=== PATIENT | male | born 1970 | race Caucasian/White ===

== ENCOUNTER 2017-11-30 15:21 | Emergency (ER) | payer MEDICAID ==
[~2017-11-30] VITALS: Ht 172.7 cm; Wt 77.3 kg
[2017-11-30 16:33] VITALS: BP 122/51
== END 2017-11-30 18:10 | disposition home or self-care (01) ==
LOC: ER 15:22
DX: K40.90 Unilateral inguinal hernia, without obstruction or gangrene, not specified as recurrent (principal); G89.29 Other chronic pain; F12.90 Cannabis use, unspecified, uncomplicated; F15.90 Other stimulant use, unspecified, uncomplicated; F10.20 Alcohol dependence, uncomplicated; Z98.890 Other specified postprocedural states; Z59.0 Homelessness; Z56.0 Unemployment, unspecified; Z88.0 Allergy status to penicillin; Y90.9 Presence of alcohol in blood, level not specified
CPT/HCPCS: 99283

== ENCOUNTER 2019-06-02 13:01 | Emergency (ER) | payer SELFPAY ==
[~2019-06-02] VITALS: Ht 167.6 cm; Wt 72.7 kg
[2019-06-02 13:03] VITALS: BP 120/79
[2019-06-02] MEDS ORDERED: CEPH250T PO (13:16)
[2019-06-02] MEDS ORDERED: acetaminophen 325mg tablet PO ONE (13:30)
== END 2019-06-02 13:30 | disposition home or self-care (01) ==
LOC: ER 13:02
DX: L08.89 Other specified local infections of the skin and subcutaneous tissue (principal); G89.29 Other chronic pain; F20.9 Schizophrenia, unspecified; F12.90 Cannabis use, unspecified, uncomplicated; F15.90 Other stimulant use, unspecified, uncomplicated; Z72.89 Other problems related to lifestyle; Z59.0 Homelessness; Z56.0 Unemployment, unspecified; Z88.0 Allergy status to penicillin; Z79.899 Other long term (current) drug therapy
CPT/HCPCS: 99284

== ENCOUNTER 2020-03-14 09:56 | Emergency (ER) | payer MEDICAID ==
[~2020-03-14] VITALS: Ht 180.3 cm; Wt 75.0 kg
[2020-03-14 10:01] VITALS: BP 121/91
[2020-03-14] MEDS: clindamycin 150mg capsule PO ONE (10:47)
[2020-03-14] MEDS ORDERED: CLIN-117 PO (10:56)
== END 2020-03-14 11:39 | disposition home or self-care (01) ==
LOC: ER 09:57
DX: T23.322A Burn of third degree of single left finger (nail) except thumb, initial encounter (principal); L02.512 Cutaneous abscess of left hand; L03.012 Cellulitis of left finger; F15.90 Other stimulant use, unspecified, uncomplicated; G89.29 Other chronic pain; F20.9 Schizophrenia, unspecified; F12.90 Cannabis use, unspecified, uncomplicated; Z72.89 Other problems related to lifestyle; Z59.0 Homelessness; Z56.0 Unemployment, unspecified; Z88.0 Allergy status to penicillin; Z79.899 Other long term (current) drug therapy; X08.8XXA Exposure to other specified smoke, fire and flames, initial encounter; Y93.9 Activity, unspecified; Y92.89 Other specified places as the place of occurrence of the external cause; Y99.8 Other external cause status
CPT/HCPCS: 26010; 99283

== ENCOUNTER 2020-03-21 17:12 | Emergency (ER) | payer MEDICAID ==
[~2020-03-21] VITALS: Ht 172.7 cm; Wt 75.0 kg
[~2020-03-21 17:12] MED LIST: CLIN-117 PO
[2020-03-21 19:01] VITALS: BP 120/81
== END 2020-03-21 19:12 | disposition home or self-care (01) ==
LOC: ER 17:13
DX: I96 Gangrene, not elsewhere classified (principal); G89.29 Other chronic pain; F12.90 Cannabis use, unspecified, uncomplicated; F15.90 Other stimulant use, unspecified, uncomplicated; F17.200 Nicotine dependence, unspecified, uncomplicated; Z72.89 Other problems related to lifestyle; Z79.2 Long term (current) use of antibiotics; Z88.0 Allergy status to penicillin; Z56.0 Unemployment, unspecified; Z59.0 Homelessness; Z98.890 Other specified postprocedural states
CPT/HCPCS: 99281; 99282

== ENCOUNTER 2020-03-28 14:53 | Emergency (ER) | payer MEDICAID ==
[~2020-03-28] VITALS: Ht 170.2 cm; Wt 72.7 kg
[2020-03-28 15:09] VITALS: BP 150/91
[2020-03-28] MEDS ORDERED: ondansetron 4mg rapidly disintigrating tab PO ONE (17:00)
[2020-03-28] MEDS ORDERED: HYDROcodone/acetaminophen 10/325mg tab PO ONE (17:00)
[2020-03-28] MEDS ORDERED: LIDOcaine 1% W/epiNEPHrine 1:200,000 10ml vial IJ ONE (17:20)
[2020-03-28 17:31] LABS: BASOPHILS % (AUTO) 0.6 % (0-1); EOSINOPHILS # (AUTO) 0.1 X10'3 (0-0.9); EOSINOPHILS % (AUTO) 0.9 % (0-6); HEMATOCRIT 41.1 % (42.0-52.0); LYMPHOCYTES # (AUTO) 1.9 X10'3 (1.1-4.8); LYMPHOCYTES % (AUTO) 24.7 % (21-51); MEAN CORPUSCULAR HEMOGLOBIN 31.9 PG (27.0-31.0); MEAN CORPUSCULAR VOLUME 93.7 FL (78-98); MONOCYTES # (AUTO) 0.6 X10'3 (0-0.9); MONOCYTES % (AUTO) 7.5 % (2-12); NEUTROPHILS # (AUTO) 5.1 X10'3 (1.8-7.7); NEUTROPHILS % (AUTO) 66.3 % (42-75); PLATELET COUNT 307 X10'3 (140-440); RED BLOOD COUNT 4.39 X10'6 (4.70-6.10); RED CELL DISTRIBUTION WIDTH 13.7 % (11.5-14.5); WHITE BLOOD COUNT 7.6 X10'3 (4.5-11.0)
[2020-03-28 17:38] LABS: ALANINE AMINOTRANSFERASE 78 U/L (12-78); ALBUMIN 3.5 G/DL (3.4-5.0); ALBUMIN/GLOBULIN RATIO 0.7 (1.1-1.5); ALKALINE PHOSPHATASE 87 IU/L (46-116); ANION GAP 8 (8-16); ASPARTATE AMINO TRANSFERASE 45 U/L (10-37); BILIRUBIN,TOTAL 0.4 MG/DL (0.1-1.0); BLOOD UREA NITROGEN 18 MG/DL (7-18); BUN/CREATININE RATIO 17.6 (5.4-32.0); CALCIUM 9.3 MG/DL (8.5-10.1); CHLORIDE 105 MMOL/L (99-107); CREATININE 1.02 MG/DL (0.60-1.10); GLUCOSE 103 MG/DL (70-104); POTASSIUM 3.8 MMOL/L (3.5-5.1); SODIUM 141 MMOL/L (135-145); TOTAL CARBON DIOXIDE 28.1 MMOL/L (24-32); TOTAL PROTEIN 8.2 G/DL (6.4-8.2); eGFR 77 ML/MIN
[2020-03-28] MEDS ORDERED: CEPH250T PO (17:59)
[2020-03-28] MEDS ORDERED: BACDS PO (17:59)
== END 2020-03-28 18:36 | disposition home or self-care (01) ==
LOC: ER 14:54
DX: I96 Gangrene, not elsewhere classified (principal); M79.645 Pain in left finger(s); G89.29 Other chronic pain; F20.9 Schizophrenia, unspecified; F12.90 Cannabis use, unspecified, uncomplicated; F15.90 Other stimulant use, unspecified, uncomplicated; Z98.890 Other specified postprocedural states; Z72.89 Other problems related to lifestyle; Z59.0 Homelessness; Z88.0 Allergy status to penicillin; Z56.0 Unemployment, unspecified; Z79.2 Long term (current) use of antibiotics
CPT/HCPCS: 36415; 73140; 80053; 85025; 99284

== ENCOUNTER 2020-04-22 10:49 | Inpatient (IN) | payer MEDICAID, OTHER ==
[~2020-04-22] VITALS: Ht 175.3 cm; Wt 68.8 kg
[2020-04-22] MEDS ORDERED: LIDOcaine 1% 30ml preserv. free vial IJ ONE (12:25)
[2020-04-22 12:30] LABS: BASOPHILS # (AUTO) 0.1 X10'3 (0-0.2); BASOPHILS % (AUTO) 0.5 % (0-1); EOSINOPHILS # (AUTO) 0.1 X10'3 (0-0.9); EOSINOPHILS % (AUTO) 0.7 % (0-6); HEMATOCRIT 38.1 % (42.0-52.0); HEMOGLOBIN 12.8 g/dl (14.0-17.9); LYMPHOCYTES # (AUTO) 1.7 X10'3 (1.1-4.8); LYMPHOCYTES % (AUTO) 15.8 % (21-51); MEAN CORPUSCULAR HEMOGLOBIN 31.2 PG (27.0-31.0); MEAN CORPUSCULAR HGB CONC 33.5 g/dL (33.0-36.5); MEAN CORPUSCULAR VOLUME 93.1 FL (78-98); MEAN PLATELET VOLUME 6.5 FL (7.4-10.4); MONOCYTES # (AUTO) 0.9 X10'3 (0-0.9); MONOCYTES % (AUTO) 8.2 % (2-12); NEUTROPHILS # (AUTO) 7.9 X10'3 (1.8-7.7); NEUTROPHILS % (AUTO) 74.8 % (42-75); PLATELET COUNT 362 X10'3 (140-440); RED BLOOD COUNT 4.09 X10'6 (4.70-6.10); RED CELL DISTRIBUTION WIDTH 14.1 % (11.5-14.5); WHITE BLOOD COUNT 10.6 X10'3 (4.5-11.0)
[2020-04-22 12:58] LABS: ALANINE AMINOTRANSFERASE 47 U/L (12-78); ALBUMIN 2.7 G/DL (3.4-5.0); ALBUMIN/GLOBULIN RATIO 0.6 (1.1-1.5); ALKALINE PHOSPHATASE 85 IU/L (46-116); ANION GAP 9 (8-16); ASPARTATE AMINO TRANSFERASE 26 U/L (10-37); BILIRUBIN,TOTAL 0.3 MG/DL (0.1-1.0); BLOOD UREA NITROGEN 20 MG/DL (7-18); BUN/CREATININE RATIO 24.7 (5.4-32.0); C-REACTIVE PROTEIN 2.15 MG/DL (0.0-0.5); CALCIUM 8.5 MG/DL (8.5-10.1); CHLORIDE 104 MMOL/L (99-107); CREATININE 0.81 MG/DL (0.60-1.10); GLUCOSE 124 MG/DL (70-104); POTASSIUM 4.1 MMOL/L (3.5-5.1); SODIUM 141 MMOL/L (135-145); TOTAL CARBON DIOXIDE 27.7 MMOL/L (24-32); TOTAL PROTEIN 7.3 G/DL (6.4-8.2); eGFR > 90 ML/MIN
[2020-04-22] MEDS ORDERED: NO HOME MEDS (13:00)
[2020-04-22] MEDS ORDERED: magnesium Cl slow-release 64mg tablet PO PRN (14:00)
[2020-04-22] MEDS ORDERED: potassium Cl 20 mEq SR tablet PO PRN ×2 (14:00)
[2020-04-22] MEDS ORDERED: metoclopramide 5 mg/ml inj IV PRN (14:00)
[2020-04-22] MEDS ORDERED: acetaminophen 325mg tablet PO PRN ×2 (14:00)
[2020-04-22] MEDS ORDERED: HYDROcodone/acetaminophen 5mg/325mg tablet PO PRN (14:00)
[2020-04-22] MEDS ORDERED: acetaminophen 650mg rectal suppository RC PRN (14:00)
[2020-04-22] MEDS ORDERED: potassium Cl 40MEQ/1/2NS 520ml 520 ML IV PRN ×2 (14:00)
[2020-04-22] MEDS ORDERED: magnesium 2GM in 50ml NS 50 ML IV PRN (14:00)
[2020-04-22] MEDS ORDERED: magnesium 4gm in 100ml NS 100 ML IV PRN (14:00)
[2020-04-22] MEDS ORDERED: mag hydrox/Alum hydrox/simeth 30ml oral suspension PO PRN (14:00)
[2020-04-22] MEDS ORDERED: magnesium hydroxide 30ml (MOM) UD suspension PO PRN (14:00)
[2020-04-22] MEDS ORDERED: bisacodyl 10mg suppository rectal RC PRN (14:00)
[2020-04-22] MEDS ORDERED: ondansetron/PF 4mg/2ml inj IV PRN (14:00)
[2020-04-22] MEDS ORDERED: LORazepam 1 MG tablet PO PRN (14:00)
[2020-04-22 14:13] LABS: PARTIAL THROMBOPLASTIN TIME 31 SECONDS (22-32)
[2020-04-22] MEDS: normal saline 1000ml 1,000 ML IV SCH ×2 (15:03→23:42)
[2020-04-22] MEDS ORDERED: ziprasidone IM 20mg inj **IM only IM PRN (15:20)
--- NOTE | 2020-04-22 15:59 | NUR ---
Report attempted, Nurse unavailable.
[2020-04-22] MEDS: HYDROcodone/acetaminophen 10/325mg tab PO PRN ×2 (16:46→23:41)
[2020-04-22 17:00] VITALS: BP 137/92
[2020-04-22 17:05] LABS: URINE AMPHETAMINE SCREEN POSITIVE (Neg); URINE BARBITUATE SCREEN NEGATIVE (Neg); URINE BENZODIAZEPINES SCREEN NEGATIVE (Neg); URINE CANNABINOID SCREEN POSITIVE (Neg); URINE COCAINE SCREEN NEGATIVE (Neg); URINE METHADONE SCREEN NEGATIVE (Neg); URINE OPIATE SCREEN NEGATIVE (Neg); URINE PHENCYCLIDINE SCREEN NEGATIVE (Neg)
--- NOTE | 2020-04-22 17:50 | NUR ---
Patient in room [facility]. I have received report from Melba LIRA and had the opportunity to ask questions and assume patient care.
--- NOTE | 2020-04-22 18:26 | NUR ---
Problems reprioritized. Patient report given, questions answered & plan of care reviewed with Tasha LIRA.
[2020-04-22] MEDS: HYDROmorphone inj. 0.5 MG/0.5 ML DISP.SYRIN IV PRN (19:13)
[2020-04-22 19:17] VITALS: BP 164/98
[2020-04-22] MEDS: K and/or MAG REPLACEMENT MC SCH (20:00)
[2020-04-22] MEDS ORDERED: temazepam 15mg capsule PO PRN (21:00)
[2020-04-22 23:57] VITALS: BP 135/85
[2020-04-23 06:07] LABS: BASOPHILS # (AUTO) 0.1 X10'3 (0-0.2); BASOPHILS % (AUTO) 0.9 % (0-1); EOSINOPHILS # (AUTO) 0.2 X10'3 (0-0.9); EOSINOPHILS % (AUTO) 2.2 % (0-6); HEMATOCRIT 39.9 % (42.0-52.0); HEMOGLOBIN 13.3 g/dl (14.0-17.9); LYMPHOCYTES # (AUTO) 2.6 X10'3 (1.1-4.8); LYMPHOCYTES % (AUTO) 31.5 % (21-51); MEAN CORPUSCULAR HEMOGLOBIN 30.9 PG (27.0-31.0); MEAN CORPUSCULAR HGB CONC 33.2 g/dL (33.0-36.5); MEAN CORPUSCULAR VOLUME 93.1 FL (78-98); MEAN PLATELET VOLUME 7.1 FL (7.4-10.4); MONOCYTES # (AUTO) 0.8 X10'3 (0-0.9); MONOCYTES % (AUTO) 9.1 % (2-12); NEUTROPHILS # (AUTO) 4.7 X10'3 (1.8-7.7); NEUTROPHILS % (AUTO) 56.3 % (42-75); PLATELET COUNT 344 X10'3 (140-440); RED BLOOD COUNT 4.29 X10'6 (4.70-6.10); RED CELL DISTRIBUTION WIDTH 14.1 % (11.5-14.5); WHITE BLOOD COUNT 8.4 X10'3 (4.5-11.0)
[2020-04-23 06:28] LABS: ALANINE AMINOTRANSFERASE 44 U/L (12-78); ALBUMIN 2.5 G/DL (3.4-5.0); ALBUMIN/GLOBULIN RATIO 0.5 (1.1-1.5); ALKALINE PHOSPHATASE 78 IU/L (46-116); ANION GAP 10 (8-16); ASPARTATE AMINO TRANSFERASE 28 U/L (10-37); BILIRUBIN,TOTAL 0.2 MG/DL (0.1-1.0); BLOOD UREA NITROGEN 18 MG/DL (7-18); BUN/CREATININE RATIO 23.1 (5.4-32.0); CALCIUM 8.6 MG/DL (8.5-10.1); CHLORIDE 105 MMOL/L (99-107); CREATININE 0.78 MG/DL (0.60-1.10); GLUCOSE 84 MG/DL (70-104); MAGNESIUM 1.8 MG/DL (1.5-2.4); POTASSIUM 4.5 MMOL/L (3.5-5.1); SODIUM 140 MMOL/L (135-145); TOTAL CARBON DIOXIDE 25.2 MMOL/L (24-32); TOTAL PROTEIN 7.1 G/DL (6.4-8.2); eGFR > 90 ML/MIN
--- NOTE | 2020-04-23 06:31 | NUR ---
Problems reprioritized. Patient report given, questions answered & plan of care reviewed with SORAYA Isidro.
--- NOTE | 2020-04-23 06:41 | NUR ---
Patient in room [facility]. I have received report from SORAYA Cordova and had the opportunity to ask questions and assume patient care.
[2020-04-23 07:00] VITALS: BP 128/90
[2020-04-23] MEDS: HYDROcodone/acetaminophen 10/325mg tab PO PRN ×3 (07:38→22:27)
[2020-04-23] MEDS: K and/or MAG REPLACEMENT MC SCH ×2 (08:00→20:00)
[2020-04-23] MEDS: normal saline 1000ml 1,000 ML IV SCH ×3 (10:00→23:10)
[2020-04-23 12:00] VITALS: BP 133/90
[2020-04-23] MEDS ORDERED: ondansetron 4mg rapidly disintigrating tab PO PRN (14:20)
[2020-04-23] MEDS ORDERED: CefTRIAXone/D5W-Rocephin 1gm 50 ML IV ONE (16:50)
--- NOTE | 2020-04-23 17:27 | NUR ---
Dr. Horner notified of patient's positive blood cultures. PAGER ID: [phone] MESSAGE: Radha- Vincent Cintron- positive blood cultures drawn on 04/22 aerobic bottle from right arm positive @ 25.18hrs Gram positive cocci in clusters.-Thank you- Sanna [phone]
--- NOTE | 2020-04-23 18:28 | NUR ---
Patient in room [facility] 349B. I have received report from SORAYA Isidro and had the opportunity to ask questions and assume patient care.
--- NOTE | 2020-04-23 18:34 | NUR ---
Problems reprioritized. Patient report given, questions answered & plan of care reviewed with SORAYA CERDA.
[2020-04-23 19:24] VITALS: BP 121/85
[2020-04-24] VITALS: BP 132/89
--- NOTE | 2020-04-24 06:27 | NUR ---
Patient in room [facility]. I have received report from SORAYA CERDA and had the opportunity to ask questions and assume patient care.
[2020-04-24] MEDS: HYDROcodone/acetaminophen 10/325mg tab PO PRN ×2 (06:53→19:27)
[2020-04-24 07:00] VITALS: BP 139/81
[2020-04-24] MEDS: CefTRIAXone/D5W-Rocephin 1gm 50 ML IV SCH (07:01)
[2020-04-24 07:58] LABS: BASOPHILS # (AUTO) 0.1 X10'3 (0-0.2); BASOPHILS % (AUTO) 0.7 % (0-1); EOSINOPHILS # (AUTO) 0.2 X10'3 (0-0.9); EOSINOPHILS % (AUTO) 2.2 % (0-6); HEMATOCRIT 43.6 % (42.0-52.0); HEMOGLOBIN 14.4 g/dl (14.0-17.9); LYMPHOCYTES # (AUTO) 1.7 X10'3 (1.1-4.8); LYMPHOCYTES % (AUTO) 20.7 % (21-51); MEAN CORPUSCULAR HEMOGLOBIN 30.7 PG (27.0-31.0); MEAN CORPUSCULAR VOLUME 93.2 FL (78-98); MONOCYTES # (AUTO) 0.7 X10'3 (0-0.9); MONOCYTES % (AUTO) 8.1 % (2-12); NEUTROPHILS # (AUTO) 5.6 X10'3 (1.8-7.7); NEUTROPHILS % (AUTO) 68.3 % (42-75); PLATELET COUNT 390 X10'3 (140-440); RED BLOOD COUNT 4.68 X10'6 (4.70-6.10); RED CELL DISTRIBUTION WIDTH 14.1 % (11.5-14.5); WHITE BLOOD COUNT 8.2 X10'3 (4.5-11.0)
[2020-04-24] MEDS: K and/or MAG REPLACEMENT MC SCH ×2 (08:00→23:20)
[2020-04-24 08:20] LABS: ALANINE AMINOTRANSFERASE 69 U/L (12-78); ALBUMIN 2.9 G/DL (3.4-5.0); ALBUMIN/GLOBULIN RATIO 0.5 (1.1-1.5); ALKALINE PHOSPHATASE 86 IU/L (46-116); ANION GAP 7 (8-16); ASPARTATE AMINO TRANSFERASE 49 U/L (10-37); BILIRUBIN,TOTAL 0.3 MG/DL (0.1-1.0); BLOOD UREA NITROGEN 20 MG/DL (7-18); BUN/CREATININE RATIO 27.8 (5.4-32.0); CALCIUM 9.3 MG/DL (8.5-10.1); CHLORIDE 101 MMOL/L (99-107); CREATININE 0.72 MG/DL (0.60-1.10); GLUCOSE 98 MG/DL (70-104); MAGNESIUM 1.9 MG/DL (1.5-2.4); POTASSIUM 4.4 MMOL/L (3.5-5.1); SODIUM 135 MMOL/L (135-145); TOTAL CARBON DIOXIDE 26.7 MMOL/L (24-32); TOTAL PROTEIN 8.2 G/DL (6.4-8.2); eGFR > 90 ML/MIN
[2020-04-24] MEDS: normal saline 1000ml 1,000 ML IV SCH ×2 (09:46→22:06)
[2020-04-24] MEDS: HYDROmorphone inj. 0.5 MG/0.5 ML DISP.SYRIN IV PRN ×2 (09:47→17:29)
--- NOTE | 2020-04-24 09:52 | NUR ---
Dilaudid given for pain in left hand /,
[2020-04-24 11:00] VITALS: BP 123/86
--- NOTE | 2020-04-24 18:25 | NUR ---
Patient in room [facility] 349B. I have received report from SORAYA Isidro and had the opportunity to ask questions and assume patient care.
[2020-04-24] MEDS ORDERED: nicotine 14mg patch - 24hr TD ONE (18:30)
--- NOTE | 2020-04-24 18:34 | NUR ---
Problems reprioritized. Patient report given, questions answered & plan of care reviewed with SORAYA Cordova. Addendum: 04/25/20 at 0040 by Tasha Bowie RN SORAYA Isidro reported off to SORAYA Cordova.
[2020-04-24] MEDS: lactobacillus rhamnosus 10,000 MMU CELLS/CAPSULE PO SCH (19:26)
[2020-04-24 20:00] VITALS: BP 136/85
[2020-04-24] MEDS: Melatonin 3mg tablet PO SCH (22:06)
[2020-04-25] VITALS (16 sets, daily range): BP systolic 118–152; BP diastolic 81–109
[2020-04-25] MEDS: HYDROcodone/acetaminophen 10/325mg tab PO PRN ×3 (02:48→23:23)
[2020-04-25 06:01] LABS: BASOPHILS % (AUTO) 0.7 % (0-1); EOSINOPHILS # (AUTO) 0.2 X10'3 (0-0.9); EOSINOPHILS % (AUTO) 2.1 % (0-6); HEMATOCRIT 42.3 % (42.0-52.0); HEMOGLOBIN 14.3 g/dl (14.0-17.9); LYMPHOCYTES # (AUTO) 1.9 X10'3 (1.1-4.8); LYMPHOCYTES % (AUTO) 25.4 % (21-51); MEAN CORPUSCULAR HEMOGLOBIN 31.1 PG (27.0-31.0); MEAN CORPUSCULAR HGB CONC 33.8 g/dL (33.0-36.5); MEAN CORPUSCULAR VOLUME 92.3 FL (78-98); MEAN PLATELET VOLUME 6.7 FL (7.4-10.4); MONOCYTES # (AUTO) 0.7 X10'3 (0-0.9); MONOCYTES % (AUTO) 9.7 % (2-12); NEUTROPHILS # (AUTO) 4.6 X10'3 (1.8-7.7); NEUTROPHILS % (AUTO) 62.1 % (42-75); PLATELET COUNT 352 X10'3 (140-440); RED BLOOD COUNT 4.59 X10'6 (4.70-6.10); RED CELL DISTRIBUTION WIDTH 13.9 % (11.5-14.5); WHITE BLOOD COUNT 7.3 X10'3 (4.5-11.0)
[2020-04-25 06:05] LABS: PARTIAL THROMBOPLASTIN TIME 29 SECONDS (22-32)
[2020-04-25 06:08] LABS: ALANINE AMINOTRANSFERASE 85 U/L (12-78); ALBUMIN 2.9 G/DL (3.4-5.0); ALBUMIN/GLOBULIN RATIO 0.6 (1.1-1.5); ALKALINE PHOSPHATASE 86 IU/L (46-116); ANION GAP 4 (8-16); ASPARTATE AMINO TRANSFERASE 55 U/L (10-37); BILIRUBIN,TOTAL 0.2 MG/DL (0.1-1.0); BLOOD UREA NITROGEN 21 MG/DL (7-18); BUN/CREATININE RATIO 28.4 (5.4-32.0); CALCIUM 9.4 MG/DL (8.5-10.1); CHLORIDE 103 MMOL/L (99-107); CREATININE 0.74 MG/DL (0.60-1.10); GLUCOSE 100 MG/DL (70-104); MAGNESIUM 1.9 MG/DL (1.5-2.4); POTASSIUM 4.5 MMOL/L (3.5-5.1); SODIUM 136 MMOL/L (135-145); TOTAL CARBON DIOXIDE 29.2 MMOL/L (24-32); eGFR > 90 ML/MIN
--- NOTE | 2020-04-25 06:57 | NUR ---
Problems reprioritized. Patient report given, questions answered & plan of care reviewed with SORAYA Kelley.
--- NOTE | 2020-04-25 07:19 | NUR ---
Patient in room [facility]. I have received report from SORAYA Cordova and had the opportunity to ask questions and assume patient care.
[2020-04-25] MEDS: K and/or MAG REPLACEMENT MC SCH ×2 (08:00→20:00)
[2020-04-25] MEDS: lactobacillus rhamnosus 10,000 MMU CELLS/CAPSULE PO SCH ×2 (08:37→21:26)
[2020-04-25] MEDS: nicotine 14mg patch - 24hr TD SCH (08:42)
[2020-04-25] MEDS: CefTRIAXone/D5W-Rocephin 1gm 50 ML IV SCH (08:43)
--- NOTE | 2020-04-25 09:10 | NUR ---
PATIENT STATED STOOL WAS SOFT AND FORMED Addendum: 04/25/20 at 0923 by Danya Thompson STUDENT LEVAR Amended: Links added.
[2020-04-25] MEDS: normal saline 1000ml 1,000 ML IV SCH (13:29)
[2020-04-25] MEDS: HYDROmorphone inj. 0.5 MG/0.5 ML DISP.SYRIN IV PRN ×2 (14:56→20:01)
--- NOTE | 2020-04-25 16:47 | NUR ---
Pt out to OR. Report given to recovery nurse.
[2020-04-25] MEDS ORDERED: BUPIVAcaine/PF 2.5 mg/ml (0.25%) 30ml vial ONE (17:11)
[2020-04-25] MEDS ORDERED: bacitracin 15gm ointment TP ONE (17:11)
--- NOTE | 2020-04-25 17:22 | NUR ---
Student documentation: I have reviewed and agree with all interventions, assessments performed and documented by Libby Student Nurse.
[2020-04-25] MEDS ORDERED: morphine 2 MG/ML inj. syringe IV PRN (17:25)
[2020-04-25] MEDS ORDERED: meperidine/PF 25mg/ml syringe IV PRN ×2 (17:25)
[2020-04-25] MEDS ORDERED: hydrALAZINE 20mg/ml inj. IV PRN (17:25)
[2020-04-25] MEDS ORDERED: morphine 4 MG/ML inj SYRINge IV PRN (17:25)
[2020-04-25] MEDS ORDERED: labetalol 20mg/4ml (5mg/ml) syringe IV PRN (17:25)
[2020-04-25] MEDS ORDERED: ringers solution, lacted 1,000 ML IV SCH (17:25)
[2020-04-25] MEDS ORDERED: ondansetron/PF 4mg/2ml inj IV PRN (17:25)
[2020-04-25] MEDS ORDERED: ketorolac trometh. 30mg/ml inj. IV ONE (17:25)
[2020-04-25] MEDS ORDERED: acetaminophen 1,000mg/100ml IV 100 ML IV PRN (17:25)
[2020-04-25] MEDS ORDERED: proCHLORperazine 10 MG/2 ml inj IV PRN (17:25)
[2020-04-25] MEDS ORDERED: fentaNYL/PF 50MCG/1 ML 2ML syringe ONE (17:30)
[2020-04-25] MEDS ORDERED: midazolam 2 mg/2 ml injection ONE (17:31)
[2020-04-25] MEDS ORDERED: propofol inj 20 ML IV ONE (18:02)
[2020-04-25] MEDS ORDERED: dexamethasone sod phosphate 4mg/ml inj. ONE (18:02)
[2020-04-25] MEDS ORDERED: ondansetron/PF 4mg/2ml inj ONE (18:02)
[2020-04-25] MEDS ORDERED: ceFAZolin 1000mg inj ONE ×2 (18:02)
[2020-04-25] MEDS ORDERED: LIDOcaine 2% (20mg/ml) 5ml vial ONE (18:02)
[2020-04-25] MEDS ORDERED: LIDOcaine 1%/PF 5ML 10 MG/ML VIAL ONE (18:02)
[2020-04-25] MEDS ORDERED: morphine 10mg/ml inj. ONE (18:18)
--- NOTE | 2020-04-25 18:30 | NUR ---
Patient in room [facility]. I have received report from SORAYA Bianchi and had the opportunity to ask questions and assume patient care.
--- NOTE | 2020-04-25 18:50 | NUR ---
Received from OR via BED, accompanied by Anesthesiologist DR ARCINIEGA and report given by Anesthesiolgist. PATIENT A&OX4, C/O PAIN, V/S WNL, NEUROVASCULAR CHECKS INTACT, 20G PIV RUE, SCD ON, DRESSING TO RIGHT AND LEFT HAND CDI ELEVATED WITH ICEBAG APPLIED.
[2020-04-25] MEDS: meperidine/PF 25mg/ml syringe IV PRN ×3 (18:54→19:13)
--- NOTE | 2020-04-25 19:00 | NUR ---
Problems reprioritized. Patient report given, questions answered & plan of care reviewed with betty Ivey.
--- NOTE | 2020-04-25 19:18 | NUR ---
Patient in room [facility]. I have received report from SORAYA Mcintosh and had the opportunity to ask questions and assume patient care. 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 Left thumb reinforced from drainage. Received 75 demerol, 1000 tylenol IV, 30 torodol. Minimal blood loss, VVS with a slightly tachy heart rate of 117.
--- NOTE | 2020-04-25 19:30 | NUR ---
PATIENT A&OX4, C/O PAIN AT TIMES SEE EMAR, V/S WNL, NEUROVASCULAR CHECKS INTACT, 20G PIV RUE, SCD ON, DRESSING TO RIGHT AND LEFT HAND CDI ELEVATED . PATIENT TAKEN TO 349B WITH ALL BELONGINGS AND HOOKED UP TO MONITORS IN ROOM AND REPORT GIVEN TO RN WHO HAS TAKEN OVER PATIENT CARE.
[2020-04-25] MEDS: Melatonin 3mg tablet PO SCH (21:27)
[2020-04-26] VITALS: BP 131/84
[2020-04-26] MEDS: HYDROmorphone inj. 0.5 MG/0.5 ML DISP.SYRIN IV PRN ×3 (01:56→13:41)
[2020-04-26] MEDS: normal saline 1000ml 1,000 ML IV SCH ×2 (01:56→12:40)
[2020-04-26] MEDS: HYDROcodone/acetaminophen 10/325mg tab PO PRN ×2 (03:51→10:31)
[2020-04-26 04:15] VITALS: BP 133/87
[2020-04-26 06:05] LABS: BASOPHILS % (AUTO) 0.2 % (0-1); EOSINOPHILS % (AUTO) 0 % (0-6); HEMATOCRIT 41.4 % (42.0-52.0); HEMOGLOBIN 13.9 g/dl (14.0-17.9); LYMPHOCYTES # (AUTO) 1.2 X10'3 (1.1-4.8); LYMPHOCYTES % (AUTO) 11.4 % (21-51); MEAN CORPUSCULAR HEMOGLOBIN 30.9 PG (27.0-31.0); MEAN CORPUSCULAR HGB CONC 33.6 g/dL (33.0-36.5); MEAN CORPUSCULAR VOLUME 91.9 FL (78-98); MONOCYTES # (AUTO) 0.3 X10'3 (0-0.9); MONOCYTES % (AUTO) 2.5 % (2-12); NEUTROPHILS # (AUTO) 8.8 X10'3 (1.8-7.7); NEUTROPHILS % (AUTO) 85.9 % (42-75); PLATELET COUNT 381 X10'3 (140-440); RED CELL DISTRIBUTION WIDTH 13.9 % (11.5-14.5); WHITE BLOOD COUNT 10.2 X10'3 (4.5-11.0)
[2020-04-26 06:14] LABS: ALANINE AMINOTRANSFERASE 96 U/L (12-78); ALBUMIN 2.8 G/DL (3.4-5.0); ALBUMIN/GLOBULIN RATIO 0.6 (1.1-1.5); ALKALINE PHOSPHATASE 94 IU/L (46-116); ANION GAP 6 (8-16); ASPARTATE AMINO TRANSFERASE 52 U/L (10-37); BILIRUBIN,TOTAL 0.3 MG/DL (0.1-1.0); BLOOD UREA NITROGEN 25 MG/DL (7-18); BUN/CREATININE RATIO 28.1 (5.4-32.0); CALCIUM 9.1 MG/DL (8.5-10.1); CHLORIDE 100 MMOL/L (99-107); CREATININE 0.89 MG/DL (0.60-1.10); GLUCOSE 165 MG/DL (70-104); MAGNESIUM 1.8 MG/DL (1.5-2.4); POTASSIUM 4.6 MMOL/L (3.5-5.1); SODIUM 133 MMOL/L (135-145); TOTAL CARBON DIOXIDE 27.5 MMOL/L (24-32); TOTAL PROTEIN 7.8 G/DL (6.4-8.2); eGFR 90 ML/MIN
--- NOTE | 2020-04-26 06:19 | NUR ---
Problems reprioritized. Patient report given, questions answered & plan of care reviewed with SORAYA Bianchi.
[2020-04-26] MEDS: nicotine 14mg patch - 24hr TD SCH (07:26)
[2020-04-26] MEDS: CefTRIAXone/D5W-Rocephin 1gm 50 ML IV SCH (07:26)
[2020-04-26] MEDS: lactobacillus rhamnosus 10,000 MMU CELLS/CAPSULE PO SCH (07:26)
[2020-04-26 08:00] VITALS: BP 140/86
[2020-04-26] MEDS: K and/or MAG REPLACEMENT MC SCH (08:00)
[2020-04-26] MEDS ORDERED: HYDROmorphone inj. 0.5 MG/0.5 ML DISP.SYRIN IV ONE (10:40)
[2020-04-26 11:00] VITALS: BP 143/83
[2020-04-26] MEDS ORDERED: HYDROcodone/acetaminophen 10/325mg tab PO PRN (11:05)
--- NOTE | 2020-04-26 11:12 | NUR ---
Initial: Pt admit with gangrene/cellulitis to left index finger. Pt now s/p amputation to left index finger with debridement to left thumb and right middle finger 04/25. Pt on a regular diet documented with 100% PO intake throughout LOS. D/w dietary to send double protein TID for satiety and increased protein needs. LBM 04/24. Will continue to follow and monitor need for further nutrition intervention. Recommendations: 1) Continue regular diet 2) Double eggs WB, double meat BIDLD 3) Routine bowel care 4) Scaled weights per rx Addendum: 04/26/20 at [address] Amended: Links added.
[2020-04-26] MEDS ORDERED: CEPH250T PO (13:57)
[2020-04-26] MEDS ORDERED: HYDR-3972 PO (13:57)
--- NOTE | 2020-04-26 16:16 | NUR ---
Pt d/c'd in stable condition. Prescription for Keflex called in to pharmacy, Sonia Mcclendon informed. Discharge and medication instructions given to pt. IV removed prior discharge. Pt was escorted to main lobby on w/c. Left the hospital on foot. Transportation was offered, pt refused.
== END 2020-04-26 16:18 | disposition home or self-care (01) | DRG 257 ==
LOC: ER 10:50 → ED HOLD 13:58 → SUR 3N 16:47
PROVIDERS: ADMIT Family Medicine; ATTEND Family Medicine
PROC: 0JBK0ZZ Excision of Left Hand Subcutaneous Tissue and Fascia, Open Approach (ICD-10-PCS; 2020-04-25)
PROC: 0JBJ0ZZ Excision of Right Hand Subcutaneous Tissue and Fascia, Open Approach (ICD-10-PCS; 2020-04-25)
PROC: 0X6P0Z1 Detachment at Left Index Finger, High, Open Approach (ICD-10-PCS; principal; 2020-04-25 17:26)
DX: I96 Gangrene, not elsewhere classified (principal); L03.012 Cellulitis of left finger; F20.9 Schizophrenia, unspecified; G47.00 Insomnia, unspecified; F12.90 Cannabis use, unspecified, uncomplicated; Z20.822 Contact with and (suspected) exposure to COVID-19; F15.10 Other stimulant abuse, uncomplicated; F10.20 Alcohol dependence, uncomplicated; G89.29 Other chronic pain; T23.022A Burn of unspecified degree of single left finger (nail) except thumb, initial encounter; X08.8XXA Exposure to other specified smoke, fire and flames, initial encounter; I25.10 Atherosclerotic heart disease of native coronary artery without angina pectoris; M81.0 Age-related osteoporosis without current pathological fracture; I25.2 Old myocardial infarction; Z59.0 Homelessness; Z87.891 Personal history of nicotine dependence; Z91.19 Patient's noncompliance with other medical treatment and regimen; Z88.0 Allergy status to penicillin; Y93.89 Activity, other specified; Y92.89 Other specified places as the place of occurrence of the external cause; Y99.8 Other external cause status
CPT/HCPCS: 96374; 99285; Z7506; Z7508; 36415; 71045; 73140; 80053; 80305; 82948; 83605; 83735; 85025; 85610; 85651; 85730; 86140; 87040; 87077; 87081; 87186; 87635; 93005; A4215; A4618; A6222; A6266; A6449; A7000; G0378; J0131; J0690; J0696; J1100; J1170; J1885; J2001; J2175; J2250; J2270; J2405; J2704; J3010; J3490; J7030; J7120

== ENCOUNTER 2020-05-06 11:04 | Emergency (ER) | payer MEDICAID ==
[~2020-05-06] VITALS: Ht 175.3 cm; Wt 69.7 kg
[~2020-05-06 11:04] MED LIST changes: +CEPH250T PO; -CLIN-117 PO; +HYDR-3972 PO
[2020-05-06] MEDS ORDERED: acetaminophen 325mg tablet PO ONE (12:40)
[2020-05-06 14:25] VITALS: BP 136/80
== END 2020-05-06 14:26 | disposition home or self-care (01) ==
LOC: ER 11:05
DX: G89.18 Other acute postprocedural pain (principal); G89.29 Other chronic pain; F12.90 Cannabis use, unspecified, uncomplicated; F15.90 Other stimulant use, unspecified, uncomplicated; Z56.0 Unemployment, unspecified; Z59.0 Homelessness; Z89.022 Acquired absence of left finger(s); Z72.89 Other problems related to lifestyle; Z88.0 Allergy status to penicillin; Z79.2 Long term (current) use of antibiotics; Z79.899 Other long term (current) drug therapy; Z98.890 Other specified postprocedural states
CPT/HCPCS: 73130; 99283